=== PATIENT | male | born 1930 | race Caucasian/White ===

== ENCOUNTER → 2017-08-30 | Outpatient (CLI) | payer MEDICARE, OTHER ==
[2015-04-02 02:27] VITALS: BP 181/72
[2017-08-30 12:43] LABS: CREATININE 1.2 mg/dL (0.7-1.3); GFR 57.5; POTASSIUM 4.6 mmol/L (3.5-5.1)
== END | disposition home or self-care (01) ==
LOC: LAB 11:51
PROVIDERS: ATTEND Physician Assistant Medical
DX: E87.5 Hyperkalemia (principal); Z79.899 Other long term (current) drug therapy
CPT/HCPCS: 36415; 80048

== ENCOUNTER 2018-04-25 11:42 | Inpatient (IN) | payer MEDICARE, OTHER ==
[~2018-04-25] VITALS: Ht 175.3 cm; Wt 61.3 kg
[2018-04-25 11:56] VITALS: BP 168/53
[2018-04-25 12:18] LABS: BASO # 0.1 x10^3/uL (0.0-0.2); BASO % 1 % (0-3); EOS % 0 % (0-3); HEMATOCRIT 39.5 % (39.0-53.0); HEMOGLOBIN 12.6 g/dL (13.0-17.5); LYMPH # 1.1 x10^3/uL (1.0-4.8); LYMPH % 7 % (24-48); MEAN CORPUSCULAR HEMOGLOBIN 25 pg (25-35); MEAN CORPUSCULAR HGB CONC 32 g/dL (31-37); MEAN CORPUSCULAR VOLUME 78 fL (79-100); MONO # 0.8 x10^3/uL (0.0-1.1); MONO % 5 % (0-9); NEUT # 13.1 x10^3uL (1.8-7.7); NEUT % 87 % (31-73); PLATELET COUNT 457 x10^3/uL (140-400); RED BLOOD COUNT 5.07 x10^6/uL (4.30-5.70); RED CELL DISTRIBUTION WIDTH 18.5 % (11.5-14.5); WHITE BLOOD COUNT 15.1 x10^3/uL (4.0-11.0)
[2018-04-25 12:29] LABS: ALBUMIN 3.1 g/dL (3.4-5.0); ALBUMIN/GLOBULIN RATIO 0.6 (1.0-1.7); CALCIUM 10.6 mg/dL (8.5-10.1); CREATININE 1.7 mg/dL (0.7-1.3); GFR 38.4; POTASSIUM 4.4 mmol/L (3.5-5.1); TOTAL BILIRUBIN 0.8 mg/dL (0.2-1.0); TOTAL PROTEIN 8.2 g/dL (6.4-8.2)
[2018-04-25] MEDS ORDERED: FISH12002 PO (12:43)
[2018-04-25] MEDS ORDERED: TICA90TA PO (12:43)
[2018-04-25] MEDS ORDERED: LIDO5CRE18 TP (12:43)
[2018-04-25] MEDS ORDERED: FLUT1DIS3 IH (12:43)
[2018-04-25] MEDS ORDERED: BUDE10.2 IH (12:43)
[2018-04-25] MEDS ORDERED: HYDR-963 PO (12:43)
[2018-04-25] MEDS ORDERED: SENN8.6T99 PO (12:43)
[2018-04-25] MEDS ORDERED: PRED20TA PO (12:43)
[2018-04-25] MEDS ORDERED: ALBU2.5V5 NEB (12:43)
[2018-04-25] MEDS ORDERED: ASPI81TA50 PO (12:43)
[2018-04-25] MEDS ORDERED: BISA10SU2 RC (12:43)
[2018-04-25] MEDS ORDERED: PRED-220 PO (12:43)
[2018-04-25] MEDS ORDERED: BUME1TAB PO (12:43)
[2018-04-25] MEDS ORDERED: PRAV20TA2 PO (12:43)
[2018-04-25] MEDS ORDERED: MULT1TAB52 PO (12:43)
[2018-04-25] MEDS ORDERED: TAMS0.4C2 PO (12:43)
[2018-04-25] MEDS ORDERED: SPIR25TA5 PO (12:43)
[2018-04-25] MEDS ORDERED: DILT120C80 PO (12:43)
[2018-04-25] MEDS ORDERED: MONT10TA9 PO (12:43)
[2018-04-25] MEDS ORDERED: GABA-586 PO (12:43)
[2018-04-25] MEDS ORDERED: POLY17PO5 PO (12:43)
[2018-04-25 12:52] LABS: % BANDS 3 % (0-9); % BASOS 0 % (0-3); % EOS 0 % (0-5); % LYMPHS 10 % (24-48); % MONOS 3 % (0-10); % SEGS 84 % (35-66); ANISOCYTOSIS SLIGHT; HYPOCHROMIA SLIGHT; PLT ESTIMATE INCREASED (ADEQUATE); POLYCHROMASIA PRESENT
[2018-04-25] MEDS ORDERED: IOHEXOL 240 MG/ML 50ML VIAL. ONE (13:02)
[2018-04-25 15:01] VITALS: BP 122/55
--- NOTE | 2018-04-25 15:23 | RAD ---
CT of the abdomen and pelvis with oral contrast only 04/25/2018 INDICATION: Abdominal pain. Leukocytosis. COMPARISON STUDY: CT of the abdomen and pelvis March 31, 2015. TECHNIQUE: Multidetector CT imaging of the abdomen and pelvis was obtained following the administration of oral contrast. FINDINGS: There is left lower lobe consolidation with areas of bronchial obstruction. The inferior most area of consolidation is somewhat rounded and masslike appearance. Sinuses represent pneumonia. A mass cannot be completely excluded. Recommend correlation with clinical findings and short-term follow-up CT The liver is unremarkable in appearance. Cholelithiasis is noted. Gallbladder is minimally distended which is nonspecific. The spleen is unremarkable. Small right adrenal gland nodule is unchanged likely an adenoma. Renal cysts are noted bilaterally, similar to comparison study. No evidence of hydronephrosis or obstructive uropathy is identified milligrams kidney. Dense fecal load noted in the rectum. Surrounding rectal wall thickening extending to the distal sigmoid colon is noted. Findings suggest fecal impaction with associated proctitis. Mild distention of the more proximal large bowel is seen. Cecum lies in the right mid abdomen. No pneumoperitoneum is identified. No significant free fluid is seen in the abdomen or pelvis. Encinas catheter is noted within a predominantly decompressed bladder. Pancreas is atrophic in appearance. Degenerative changes of the spine are noted without evidence of acute osseous abnormality. Severe diffuse atherosclerotic vascular disease is noted. Bilateral iliac artery stents are noted. IMPRESSION: 1. Dense stool within the rectum with associated rectal and distal sigmoid colonic wall thickening concerning for a fecal impaction with associated proctitis. Mild distention of the more proximal colon also noted. 2. Left lower lobe consolidation with area of masslike consolidation in the basilar left lower lobe. Areas of bronchial opacification are also seen in left lower lobe. Findings may represent pneumonia, however a left lower lobe mass cannot be excluded. Correlate with clinical findings and consider short-term CT chest follow-up to ensure resolution as clinically indicated. 3. Other chronic changes as described. CT DOSING PQRS STATEMENT: One or more of the following individualized dose reduction techniques were utilized for this examination: 1. Automated exposure control 2. Adjustment of the mA and/or kV according to patient size 3. Use of iterative reconstruction technique Electronically signed by: Dario Fox MD (04/25/2018 3:20 PM) [id number]
[2018-04-25] MEDS ORDERED: BISACODYL 10 MG SUPP.RECT PR PRN (17:30)
--- NOTE | 2018-04-25 17:32 | HP ---
ADMIT DATE: 04/25/2018 HISTORY OF PRESENT ILLNESS: The patient is an 88-year-old male patient, a resident at [facility], who has been complaining of abdominal pain for the last few days. He was evaluated yesterday at the [facility] and was sent back immediately. It seems he was apparently found to have urinary retention and apparently an indwelling Encinas catheter was placed and was sent back to [facility]. However, the patient continued to complain of severe pain and therefore the patient was admitted directly to [facility] as he continued to complain of pain in his suprapubic area marked spasm. We did lab work and CT scan of the abdomen with oral contrast only, and the CT scan of the abdomen showed that the patient has dense stool within the rectum with associated rectal and distal sigmoid colonic wall thickening, concerning for fecal impaction with associated proctitis. He has mild distention of the more proximal colon also noted and has also left lower lobe consolidation with areas of mass-like consolidation, the basilar left lower lobe, areas of bronchial opacification are also seen in the left lower lobe, finding represents pneumonia; however, a left lower lobe mass cannot be excluded. His lab work also showed that he has leukocytosis as well as acute on chronic kidney injury as his BUN and creatinine have dramatically risen from 35 and 1.2 on 04/22/2018 to 55 and 1.7 this morning. He obviously has urine retention that might also have contributed to his impaired kidney function that has resolved by an indwelling Encinas catheter. His calcium was also high at 10.6. PAST MEDICAL HISTORY: Significant for benign prostatic hypertrophy, chronic anemia, chronic obstructive pulmonary disease, chronic constipation, chronic low back pain, peptic ulcer disease, peripheral vascular disease, coronary artery disease, bilateral carotid artery stenosis, chronic diastolic congestive heart failure, gastroesophageal reflux disease, and [id number] hypoxic hypercapnic respiratory failure as well as peripheral neuropathy. PAST SURGICAL HISTORY: Significant for cataract extraction, tonsillectomy, colonoscopy, coronary artery bypass graft surgery x 4, left heart catheterization, cervical and lumbar laminectomy, femoropopliteal bypass graft surgery, vasectomy, carotid endarterectomy and bilateral iliac artery stent deployment. FAMILY HISTORY: Positive for hypertension and coronary artery disease. SOCIAL HISTORY: He is , ex-smoker, quit 20 years ago, used to smoke 2 packs a day for 40 years. He does not drink alcohol or use any recreational drugs. REVIEW OF SYSTEMS: The patient has bilateral cataract extraction, but denied any glaucoma or macular degeneration. Denied any earache, tinnitus or sensorineural deafness. Denied any nosebleeds, stuffy nose or postnasal drip. Denied any sore throat, sore tongue, toothache, hoarseness of voice or difficulty swallowing. Denied any nausea, vomiting but did complain of severe constipation. In fact, he was seen even yesterday at the [facility] Emergency Room, was given milk of magnesia, Fleet enema and suppository without effect. He apparently was found to have urinary retention for which he had an indwelling Encinas catheter placed at the [facility] Room. He denied any chest pain. Did complain of shortness of breath as he is known to have chronic obstructive pulmonary disease as well as COPD as well as congestive heart failure; however, he denied any chills, rigors or fever. Denied any dizziness, lightheadedness, or vertigo. PHYSICAL EXAMINATION: GENERAL: When I examined him on arrival to the hospital, he looked pale, somewhat cachectic, but no jaundice, cyanosis, or thyromegaly. No jugular venous distension. No limb edema. VITAL SIGNS: His heart rate was 82, blood pressure was 122/55, temperature was 98.7, respiratory rate 20, and oxygen saturation was 95% on 4 liters of oxygen. HEAD, EYES, EARS, NOSE, and THROAT: Showed normocephalic, atraumatic. NECK: Supple. HEART: Showed normal first and second heart sounds. No gallop, rub or murmur. CHEST: Clear to auscultation. No crepitation or rhonchi. ABDOMEN: Distended, soft, nontender. The tenderness is mostly in the suprapubic area. There is no guarding or rigidity. No organomegaly. Bowel sounds are normal. NEUROLOGIC: He is awake, alert, responding appropriately. Cranial nerves are intact. EXTREMITIES: She moves extremities without difficulty. He is mostly bedbound, chair bound. LABORATORY DATA: His lab work on arrival showed a serum sodium of 139, potassium 4.4, chloride 97, bicarbonate 38, anion gap of 4, BUN 55, creatinine 1.7, estimated GFR was 58 mL per minute, and his glucose 133. Lactic acid was only 1, calcium was ____. Total bilirubin, AST, and ALT are normal as well as alkaline phosphatase. His lactate dehydrogenase was high at 239. Total protein was 8.2, albumin was 3.1. Lipase was 57. White cell count was 15,000, hemoglobin 12.6, hematocrit 39, MCV 78, and platelet count of 457,000 with normal manual differential. His CT scan of the abdomen and pelvis with oral contrast only showed that the patient has dense stool within the rectum with associated rectal and distal sigmoid colonic wall thickening concerning for fecal impaction with associated proctitis, there is mild distention of the more proximal colon also noted, he has left lower lobe consolidation with areas of mass-like consolidation of the basilar left lower lobe, areas of bronchial opacification are also seen in the left lower lobe, finding represents pneumonia; however, her left lower lobe mass cannot be excluded. PLAN: My plan is to continue with all his medication. I will start him on IV antibiotic for possible healthcare-associated pneumonia and will continue with MiraLax and Colace and perhaps Amitiza or Relistor if necessary. I will repeat all his lab works tomorrow. I will start him on Zyvox and Zosyn. PAUL BERRIOS MD DR: OLIVIA/booker JOB#: [id number] / [id number]
[2018-04-25] MEDS ORDERED: LIDOCAINE 2% TOPICAL JELLY 5GM TUBE. TP PRN (17:45)
[2018-04-25] MEDS: IV NORMAL SALINE 1,000ML 1,000 ML IV SCH (17:55)
[2018-04-25] MEDS: PIPERACILLIN/TAZOBACTAM 2.25 GM in IV NORMAL SALINE 50ML 50 ML IV SCH (17:56)
[2018-04-25 19:41] VITALS: BP 149/69
[2018-04-25 19:48] VITALS: BP 122/54
[2018-04-25] MEDS: BUDESONIDE 0.5 MG/2 ML NEBU NEB SCH (20:46)
[2018-04-25] MEDS ORDERED: NON FORMULARY ITEM (Budesonide/Formoterol Fumarate (Symbicort 160-4.5 Mcg Inhaler) 2 PUFF) IH SCH (21:00)
[2018-04-25] MEDS ORDERED: NON FORMULARY ITEM (Fluticasone/Salmeterol (Advair 250-50 Diskus) 1 PUFF) IH SCH (21:00)
[2018-04-25] MEDS ORDERED: BUMETANIDE 1 MG TABLET PO SCH (21:00)
[2018-04-25] MEDS: MONTELUKAST 10 MG TABLET. PO SCH (21:45)
[2018-04-25] MEDS: TICAGRELOR 90 MG TABLET. PO SCH (21:45)
[2018-04-25] MEDS: PRAVASTATIN 20 MG TABLET. PO SCH (21:45)
[2018-04-25] MEDS: SENNOSIDES 8.6 MG TABLET PO SCH (21:45)
[2018-04-25 23:36] VITALS: BP 114/43
[2018-04-26] MEDS: PIPERACILLIN/TAZOBACTAM 2.25 GM in IV NORMAL SALINE 50ML 50 ML IV SCH ×3 (01:18→17:19)
[2018-04-26 05:26] VITALS: BP 120/66
[2018-04-26 06:16] LABS: HEMATOCRIT 38.4 % (39.0-53.0); HEMOGLOBIN 12.1 g/dL (13.0-17.5); RED BLOOD COUNT 4.91 x10^6/uL (4.30-5.70); RED CELL DISTRIBUTION WIDTH 18.5 % (11.5-14.5); WHITE BLOOD COUNT 18.5 x10^3/uL (4.0-11.0)
[2018-04-26 06:30] LABS: ALBUMIN 2.8 g/dL (3.4-5.0); ALBUMIN/GLOBULIN RATIO 0.6 (1.0-1.7); CALCIUM 9.7 mg/dL (8.5-10.1); CREATININE 1.5 mg/dL (0.7-1.3); GFR 44.4; POTASSIUM 3.7 mmol/L (3.5-5.1); TOTAL PROTEIN 7.7 g/dL (6.4-8.2)
[2018-04-26] MEDS: NALOXEGOL OXALATE 25 MG TABLET. PO SCH (07:00)
[2018-04-26] MEDS: predniSONE 10 MG TABLET PO SCH (08:18)
[2018-04-26] MEDS: OMEGA-3 FATTY ACIDS/FISH OIL 1,000 MG CAPSULE. PO SCH (08:18)
[2018-04-26] MEDS: TAMSULOSIN 0.4 MG CAP.ER.24H. PO SCH (08:18)
[2018-04-26] MEDS: ASPIRIN 81 MG TAB.CHEW PO SCH (08:19)
[2018-04-26] MEDS: SPIRONOLACTONE 25 MG TABLET PO SCH (08:19)
[2018-04-26] MEDS: TICAGRELOR 90 MG TABLET. PO SCH ×2 (08:19→21:07)
[2018-04-26] MEDS: MULTIVITAMIN with MINERAL TABLET. PO SCH (08:19)
[2018-04-26] MEDS: HYDROcodone/APAP 10/325 1 TAB TABLET PO PRN (08:23)
[2018-04-26] MEDS: SENNOSIDES 8.6 MG TABLET PO SCH ×2 (08:31→20:38)
[2018-04-26] MEDS: POLYETHYLENE GLYCOL 3350 17 GM PACKET. PO SCH (08:31)
[2018-04-26] MEDS ORDERED: predniSONE 10 MG TABLET PO SCH (09:00)
[2018-04-26] MEDS ORDERED: predniSONE 20 MG TABLET PO SCH (09:00)
[2018-04-26 10:35] VITALS: BP 153/65
[2018-04-26] MEDS: IV NORMAL SALINE 1,000ML 1,000 ML IV SCH (10:37)
[2018-04-26] MEDS: BUDESONIDE 0.5 MG/2 ML NEBU NEB SCH ×2 (10:43→20:55)
[2018-04-26 15:13] VITALS: BP 135/55
[2018-04-26 15:36] LABS: BACTERIA,URINE 0 /HPF (0-FEW); BILIRUBIN,URINE NEG (NEG); CLARITY,URINE HAZY; COLOR,URINE YELLOW; GLUCOSE,URINE NEG (NEG); NITRITE,URINE NEG (NEG); RBC,URINE >40 /HPF (0-2); UROBILINOGEN,URINE 0.2 mg/dL (0.2 mg/dL)
[2018-04-26 19:00] VITALS: BP 110/49
[2018-04-26] MEDS: ALBUTEROL SULFATE 2.5 MG/3 ML NEBU. NEB PRN (20:55)
[2018-04-26] MEDS: LACTOBACILLUS RHAMNOSUS GG 1 CAPSULE. PO SCH (21:07)
[2018-04-26] MEDS: PRAVASTATIN 20 MG TABLET. PO SCH (21:07)
[2018-04-26] MEDS: MONTELUKAST 10 MG TABLET. PO SCH (21:07)
[2018-04-26 23:55] VITALS: BP 136/59
[2018-04-27] MEDS: PIPERACILLIN/TAZOBACTAM 2.25 GM in IV NORMAL SALINE 50ML 50 ML IV SCH (01:22)
[2018-04-27] MEDS: IV NORMAL SALINE 1,000ML 1,000 ML IV SCH (01:23)
[2018-04-27] MEDS: HYDROcodone/APAP 10/325 1 TAB TABLET PO PRN ×4 (01:23→20:12)
--- NOTE | 2018-04-27 03:43 | PN ---
DATE: 04/26/2018 SUBJECTIVE: The patient is resting, slightly propped up in bed, in no apparent respiratory distress. He has no more complaint of abdominal pain. We did a digital disimpaction yesterday and large amount of stool was recovered and he had large bowel movement yesterday and about 4 this morning. He denied any chest pain. His shortness of breath is baseline. Denied any chills, rigors or fever. He has cough with whitish sputum. PHYSICAL EXAMINATION: GENERAL: When I examined him, he looked pale, somewhat cachectic, but no jaundice, cyanosis, or thyromegaly. No jugular venous distension. No limb edema. VITAL SIGNS: His heart rate was 84, blood pressure was 153/65, temperature was 97.9, respiratory rate 20, and oxygen saturation was 93% on 4 liters of oxygen. HEAD, EYES, EARS, NOSE AND THROAT: Showed normocephalic, atraumatic. NECK: Supple. HEART: Showed normal first and second heart sounds with no gallop, rub or murmur. CHEST: Clear to auscultation. No crepitation or rhonchi. ABDOMEN: Distended, soft, nontender. No guarding or rigidity. No organomegaly. All hernial orifices are intact. Bowel sounds normal. GENITOURINARY: He has an indwelling Encinas catheter. NEUROLOGIC: He is awake, alert, responding appropriately. All cranial nerves are intact. He moves extremities without difficulty. He managed to ambulate with a walker. His intake over the last 24 hours and output were incompletely recorded. LABORATORY DATA: Showed a serum sodium of 138, potassium 3.7, chloride 97, bicarbonate 36, anion gap of 5, BUN 41, creatinine 1.5, estimated GFR was 44 mL per minute, his glucose was 102, calcium was 9.7. Total bilirubin, AST, ALT, alkaline phosphatase were normal. Total protein was 7.7, albumin was 2.8. His white cell count was 18,500, hemoglobin 12, hematocrit 38, MCV 78 and platelet count of 416,000. ASSESSMENT: 1. Abdominal pain due to severe fecal impaction with associated proctitis with mild distention of the more proximal colon, status post digital disimpaction. The patient has numerous bowel movements. His abdomen is soft. He has no more abdominal pain. 2. Benign prostatic hypertrophy with bladder outlet obstruction, status post indwelling Encinas catheter. 3. Acute kidney injury, slowly resolving. His BUN and creatinine are trending downward. 4. Left lower lobe infiltrate for which he is on IV antibiotics for healthcare-associated pneumonia. 5. Other medical problems include chronic obstructive pulmonary disease, chronic low back pain, [id number] hypoxic hypercapnic respiratory failure, peripheral neuropathy and chronic diastolic congestive heart failure. PLAN: My plan is to continue with IV Zosyn and Zyvox. Continue with indwelling Encinas catheter. Continue with gentle dehydration and monitor his lab work, continue with SCD for DVT prophylaxis. PAUL BERRIOS MD DR: OLIVIA/booker JOB#: [id number] / [id number]
[2018-04-27 05:05] VITALS: BP 158/54
[2018-04-27] MEDS: NALOXEGOL OXALATE 25 MG TABLET. PO SCH ×2 (06:00→20:11)
[2018-04-27 06:07] LABS: ALBUMIN 2.3 g/dL (3.4-5.0); ALBUMIN/GLOBULIN RATIO 0.5 (1.0-1.7); CREATININE 1.1 mg/dL (0.7-1.3); GFR 63.5; POTASSIUM 3.6 mmol/L (3.5-5.1); TOTAL BILIRUBIN 0.7 mg/dL (0.2-1.0); TOTAL PROTEIN 6.9 g/dL (6.4-8.2)
[2018-04-27 06:16] LABS: HEMATOCRIT 35.8 % (39.0-53.0); HEMOGLOBIN 11.2 g/dL (13.0-17.5); RED BLOOD COUNT 4.57 x10^6/uL (4.30-5.70); RED CELL DISTRIBUTION WIDTH 18.2 % (11.5-14.5); WHITE BLOOD COUNT 18.4 x10^3/uL (4.0-11.0)
[2018-04-27] MEDS: BUDESONIDE 0.5 MG/2 ML NEBU NEB SCH ×2 (08:00→20:43)
[2018-04-27] MEDS: ASPIRIN 81 MG TAB.CHEW PO SCH (08:37)
[2018-04-27] MEDS: SPIRONOLACTONE 25 MG TABLET PO SCH (08:37)
[2018-04-27] MEDS: OMEGA-3 FATTY ACIDS/FISH OIL 1,000 MG CAPSULE. PO SCH (08:38)
[2018-04-27] MEDS: LACTOBACILLUS RHAMNOSUS GG 1 CAPSULE. PO SCH ×2 (08:38→20:10)
[2018-04-27] MEDS: TAMSULOSIN 0.4 MG CAP.ER.24H. PO SCH (08:38)
[2018-04-27] MEDS: TICAGRELOR 90 MG TABLET. PO SCH ×2 (08:38→20:11)
[2018-04-27] MEDS: MULTIVITAMIN with MINERAL TABLET. PO SCH (08:39)
[2018-04-27] MEDS: predniSONE 10 MG TABLET PO SCH (08:39)
[2018-04-27] MEDS: PIPERACILLIN/TAZOBACTAM 4.5 GM in IV NORMAL SALINE 50ML 50 ML IV SCH ×3 (08:40→20:10)
[2018-04-27] MEDS: SENNOSIDES 8.6 MG TABLET PO SCH ×2 (08:46→20:11)
[2018-04-27] MEDS: POLYETHYLENE GLYCOL 3350 17 GM PACKET. PO SCH (08:46)
[2018-04-27] MEDS: ALBUTEROL SULFATE 2.5 MG/3 ML NEBU. NEB PRN ×2 (10:21→20:43)
[2018-04-27 11:15] VITALS: BP 133/54
[2018-04-27 15:08] VITALS: BP 138/69
[2018-04-27 19:00] VITALS: BP 157/75
[2018-04-27 19:40] VITALS: BP 157/75
[2018-04-27] MEDS: PRAVASTATIN 20 MG TABLET. PO SCH (20:11)
[2018-04-27] MEDS: MONTELUKAST 10 MG TABLET. PO SCH (20:11)
[2018-04-27 22:20] VITALS: BP 161/68
--- NOTE | 2018-04-27 23:15 | PN ---
DATE: 04/27/2018 SUBJECTIVE: The patient is resting, slightly propped up in bed, awake, alert. On questioning him, he stated that he has muscle spasm in his legs, but denied any chest pain or shortness of breath. He has 3 large bowel movements overnight. PHYSICAL EXAMINATION: GENERAL: When I examined him, he looked pale, cachectic, but no jaundice or cyanosis. No lymphadenopathy, no thyromegaly. No jugular venous distension. No limb edema. VITAL SIGNS: His heart rate was 71, blood pressure 158/54, temperature was 98.5, respiratory rate was 18 and oxygen saturation was 94% on 4 liters of oxygen. HEAD, EYES, EARS, NOSE AND THROAT: Showed normocephalic, atraumatic. NECK: Supple. HEART: Showed normal first and second sounds. No gallop, rub or murmur. CHEST: Showed central trachea, equally reduced expansion, reduced air entry, vesicular breath sounds with crepitation mostly on the left side posteriorly. I could not appreciate any rhonchi. ABDOMEN: Distended, soft, nontender. No guarding or rigidity. No organomegaly. All hernial orifices intact. Bowel sounds normal. NEUROLOGIC: He was awake, alert, responding appropriately. Cranial nerves intact. He moves extremities without difficulty. He ambulates with a walker. His intake over the last 24 hours was 1700, output was 1300. LABORATORY DATA: As of this morning showed a white cell count of 18,400, hemoglobin 11.2, hematocrit 36, MCV 78 and platelet count 335,000. His chemistry showed a serum sodium 138, potassium 3.6, chloride 101, bicarbonate 32, anion gap of 5, BUN 27, creatinine 1.1, estimated GFR was 54 mL per minute. His glucose 95, calcium was 9. Total bilirubin, AST, ALT, alkaline phosphatase were normal. Total protein 6.9, albumin 2.3. ASSESSMENT: 1. Abdominal pain due to severe fecal impaction with associated proctitis with mild distention of the more proximal colon, status post tissue disimpaction. The patient has numerous bowel movements. In fact, last night he has 3 large bowel movements. His abdomen is soft. He has no more abdominal pain. 2. Benign prostatic hypertrophy with bladder outlet obstruction, status post indwelling Encinas catheter. 3. Acute kidney injury, slowly improving. His BUN and creatinine are 27 and 1.1. 4. Left lower lobe infiltrate for which he is on IV antibiotics for healthcare-associated pneumonia. 5. Other medical problems include: A. Chronic obstructive pulmonary disease. B. Chronic low back pain. C. Acute on chronic hypoxic hypercapnic respiratory failure. D. Peripheral neuropathy. E. Chronic diastolic congestive heart failure. PLAN: My plan is to discontinue IV fluid. Continue with IV Zosyn and Zyvox. Continue with indwelling Encinas catheter. SCDs for DVT prophylaxis. I consulted PT, OT for evaluation and treatment. PAUL BERRIOS MD DR: OLIVIA/booker JOB#: [id number] / [id number]
[2018-04-28 02:30] VITALS: BP 174/73
[2018-04-28] MEDS: PIPERACILLIN/TAZOBACTAM 4.5 GM in IV NORMAL SALINE 50ML 50 ML IV SCH ×4 (02:59→20:24)
[2018-04-28 05:35] VITALS: BP 171/71
[2018-04-28] MEDS: ASPIRIN 81 MG TAB.CHEW PO SCH (07:10)
[2018-04-28 07:11] LABS: HEMATOCRIT 36.9 % (39.0-53.0); HEMOGLOBIN 11.5 g/dL (13.0-17.5); RED BLOOD COUNT 4.69 x10^6/uL (4.30-5.70); RED CELL DISTRIBUTION WIDTH 18.2 % (11.5-14.5); WHITE BLOOD COUNT 13.8 x10^3/uL (4.0-11.0)
[2018-04-28] MEDS: HYDROcodone/APAP 10/325 1 TAB TABLET PO PRN ×3 (07:11→19:53)
[2018-04-28 07:14] LABS: CALCIUM 8.8 mg/dL (8.5-10.1); GFR 70.8; POTASSIUM 3.4 mmol/L (3.5-5.1)
[2018-04-28] MEDS: BUDESONIDE 0.5 MG/2 ML NEBU NEB SCH ×2 (08:00→20:00)
[2018-04-28] MEDS: SENNOSIDES 8.6 MG TABLET PO SCH ×2 (09:00→20:23)
[2018-04-28] MEDS: POLYETHYLENE GLYCOL 3350 17 GM PACKET. PO SCH (09:00)
[2018-04-28] MEDS: TAMSULOSIN 0.4 MG CAP.ER.24H. PO SCH (09:20)
[2018-04-28] MEDS: OMEGA-3 FATTY ACIDS/FISH OIL 1,000 MG CAPSULE. PO SCH (09:20)
[2018-04-28] MEDS: LACTOBACILLUS RHAMNOSUS GG 1 CAPSULE. PO SCH ×2 (09:20→19:53)
[2018-04-28] MEDS: SPIRONOLACTONE 25 MG TABLET PO SCH (09:20)
[2018-04-28] MEDS: predniSONE 10 MG TABLET PO SCH (09:20)
[2018-04-28] MEDS: TICAGRELOR 90 MG TABLET. PO SCH ×2 (09:20→19:53)
[2018-04-28] MEDS: MULTIVITAMIN with MINERAL TABLET. PO SCH (09:21)
[2018-04-28] MEDS: ALBUTEROL SULFATE 2.5 MG/3 ML NEBU. NEB PRN ×2 (09:39→20:02)
[2018-04-28 11:05] VITALS: BP 139/63
[2018-04-28] MEDS: HYOSCYAMINE 0.125 MG TAB.RAPDIS PO PRN ×2 (11:21→19:55)
[2018-04-28] MEDS: POTASSIUM CHLORIDE 20 MEQ TABLET.ER. PO SCH ×2 (14:18→19:54)
--- NOTE | 2018-04-28 14:38 | RAD ---
CT chest abdomen and pelvis without contrast: History: Pain status post fall Axial helical images of the chest, abdomen and pelvis were obtained without IV contrast. Comparison: April 25, 2018 Findings: There is patchy masslike opacities scattered throughout the left lung the largest is at left lung base and measures 4.7 x 3.9 cm. There is calcification the [place] of the thoracic aorta without aneurysm. There is significant coronary artery calcium patients and there is previous median sternotomy. There is no mediastinal lymphadenopathy or hematoma. There is no hilar lymphadenopathy. Impression: 1. Previous midline sternotomy and significant coronary artery calcifications. 2. Patchy masslike opacities throughout the left lung could be pulmonary contusion however atypical pneumonia or neoplasm is possible. Consider a three-month follow-up CT of the chest without contrast versus a PET/CT. End Impression CT SCAN OF THE ABDOMEN without IV CONTRAST. Findings: Liver: Unremarkable Spleen: Unremarkable Pancreas: Atrophic Adrenal Glands: Unremarkable Kidneys: Multiple cysts Evaluation of stomach and bowel is limited without oral contrast. Evaluation of solid organs is limited without IV contrast. There is no mass or lymphadenopathy. There is no free air. There is no free fluid. There is significant calcification of the abdominal aorta without aneurysm. There is hard plaque causing high-grade stenosis of the infrarenal abdominal aorta. 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 No acute findings. End Impression CT of pelvis without contrast: There is no lymphadenopathy or free fluid. The bladder is partially collapsed around the Encinas and not well evaluated. Apparent mild wall thickening is likely secondary to nondistention. There is some air in the urinary bladder likely due to Encinas placement. There is no pericolonic inflammation. Impression: No acute findings. See CT of the chest without contrast and the CT of the abdomen without contrast. End impression PQRS Compliance Statement: One or more of the following individualized dose reduction techniques were utilized for this examination: 1. Automated exposure control 2. Adjustment of the mA and/or kV according to patient size 3. Use of iterative reconstruction technique Electronically signed by: Bucky Todd III, MD (04/28/2018 2:34 PM) [id number]
[2018-04-28] MEDS: LIDOCAINE (700MG/PATCH) PATCH. TD SCH (14:57)
[2018-04-28 15:02] VITALS: BP 153/70
--- NOTE | 2018-04-28 15:34 | PN ---
DATE: 04/28/2018 SUBJECTIVE: The patient is resting slightly propped up in bed, in no apparent respiratory distress. He continued to complain of some abdominal pain and muscle spasm in his legs. However, he is generally doing much better compared to when he came in. He remained afebrile, generally hemodynamically stable. PHYSICAL EXAMINATION: GENERAL: When I examined him this morning, he looked pale, but no jaundice, cyanosis or thyromegaly. No jugular venous distension. No lower limb edema. VITAL SIGNS: His heart rate was 82, blood pressure 171/71, temperature 98.5, respiratory rate 16 and oxygen saturation was 97% on 4 L of oxygen. HEAD, EYES, EARS, NOSE AND THROAT: Normocephalic, atraumatic. NECK: Supple. HEART: Shows normal first and second heart sounds with no gallop, rub or murmur. CHEST: Shows central trachea, equal bilateral chest expansion and air entry, vesicular breath sounds with crepitation mostly in the left side posteriorly. I could not appreciate any rhonchi. ABDOMEN: Distended, soft, nontender. No guarding or rigidity. No organomegaly. All hernial orifices intact. Bowel sounds normal. NEUROLOGIC: He was awake, alert, responding appropriately. Cranial nerves intact. He moves extremities without difficulty. He managed to ambulate with a walker with standby assist. His intake over the last 24 hours was 2360, output was 1350. LABORATORY DATA: As of this morning showed a white cell count of 13,800, hemoglobin 11.5, hematocrit 36.9, MCV 79 and platelet count 355,000. Serum sodium was 137, potassium 3.4, chloride 103, bicarbonate 28, anion gap of 6, BUN 16, creatinine 1, estimated GFR was 71 mL per minute. Glucose was 86, calcium was 8.8. PLAN: To continue with IV antibiotic in the form of piperacillin, tazobactam as well as his linezolid. His potassium is low, so I will start him on some potassium and increase his spironolactone to 50 mg, start him also on Requip for possible restless legs syndrome. So far, all his cultures are negative. Hopefully, he will remain stable tomorrow. I will arrange for him to be discharged back to [facility] to continue on oral antibiotic. PAUL BERRIOS MD DR: Jayden JOB#: [id number] / [id number]
[2018-04-28 19:41] VITALS: BP 164/54
[2018-04-28] MEDS: MONTELUKAST 10 MG TABLET. PO SCH (19:53)
[2018-04-28] MEDS: PRAVASTATIN 20 MG TABLET. PO SCH (19:53)
[2018-04-28] MEDS ORDERED: PATCH REMOVAL. MC SCH (21:00)
[2018-04-28] MEDS ORDERED: rOPINIRole 0.25 MG TABLET. PO SCH (21:00)
[2018-04-28 23:00] VITALS: BP 164/76
[2018-04-29] MEDS: PIPERACILLIN/TAZOBACTAM 4.5 GM in IV NORMAL SALINE 50ML 50 ML IV SCH ×2 (02:26→08:43)
[2018-04-29] MEDS: HYDROcodone/APAP 10/325 1 TAB TABLET PO PRN ×2 (02:30→11:17)
[2018-04-29] MEDS: NALOXEGOL OXALATE 25 MG TABLET. PO SCH (06:07)
[2018-04-29 06:24] LABS: HEMATOCRIT 36.3 % (39.0-53.0); HEMOGLOBIN 11.4 g/dL (13.0-17.5); RED BLOOD COUNT 4.62 x10^6/uL (4.30-5.70); WHITE BLOOD COUNT 11.9 x10^3/uL (4.0-11.0)
[2018-04-29 06:28] LABS: CALCIUM 8.9 mg/dL (8.5-10.1); CREATININE 0.9 mg/dL (0.7-1.3)
[2018-04-29 06:34] VITALS: BP 154/65
[2018-04-29] MEDS: BUDESONIDE 0.5 MG/2 ML NEBU NEB SCH (08:00)
[2018-04-29] MEDS: POTASSIUM CHLORIDE 20 MEQ TABLET.ER. PO SCH (08:39)
[2018-04-29] MEDS: TICAGRELOR 90 MG TABLET. PO SCH (08:39)
[2018-04-29] MEDS: MULTIVITAMIN with MINERAL TABLET. PO SCH (08:40)
[2018-04-29] MEDS: ASPIRIN 81 MG TAB.CHEW PO SCH (08:40)
[2018-04-29] MEDS: OMEGA-3 FATTY ACIDS/FISH OIL 1,000 MG CAPSULE. PO SCH (08:40)
[2018-04-29] MEDS: LACTOBACILLUS RHAMNOSUS GG 1 CAPSULE. PO SCH (08:40)
[2018-04-29] MEDS: predniSONE 10 MG TABLET PO SCH (08:40)
[2018-04-29] MEDS: TAMSULOSIN 0.4 MG CAP.ER.24H. PO SCH (08:40)
[2018-04-29] MEDS: LIDOCAINE (700MG/PATCH) PATCH. TD SCH (08:44)
[2018-04-29] MEDS: POLYETHYLENE GLYCOL 3350 17 GM PACKET. PO SCH (09:00)
[2018-04-29] MEDS ORDERED: SPIRONOLACTONE 25 MG TABLET PO SCH (09:00)
[2018-04-29] MEDS: SENNOSIDES 8.6 MG TABLET PO SCH (09:00)
--- NOTE | 2018-04-29 10:49 | DS ---
DATE OF DISCHARGE: 04/29/2018 HOSPITAL COURSE: The patient is an 88-year-old male patient, a resident at [facility], who was brought in with complaint of severe abdominal pain and shortness of breath. CT scan showed that he has fecal impaction. He has also had urinary retention requiring indwelling Encinas catheter and initial investigation showed that he has acute kidney injury, most likely due to obstructive uropathy as well as left lower lobe pneumonia. He has an indwelling Encinas catheter. We drained about 1800 mL of urine. His kidney function gradually improved. We started him on IV antibiotics for healthcare-associated pneumonia and started him also on Movantik together with all his bowel regimen and digital disimpaction. He had numerous bowel movements and his general condition improved. He continued to complain of muscle spasms. Otherwise, he remained afebrile, hemodynamically stable. White cell count has normalized from as high as 15,000 to 11,000. So far, all his blood and urine culture is negative and as he remained stable, a decision was made to discharge him back to [facility] to continue with Encinas catheter. Continue to finish antibiotic treatment. Continue with aggressive bowel regimen. PHYSICAL EXAMINATION: GENERAL: When I saw him today, he looked pale, cachectic, but no jaundice, cyanosis or thyromegaly. No jugular venous distention. No lower limb edema. VITAL SIGNS: His heart rate was 73, blood pressure 154/65, temperature was 98.4, respiratory rate was 18 and oxygen saturation was 96% on 4 liters of oxygen. HEAD, EYES, EARS, NOSE AND THROAT: Showed normocephalic, atraumatic. NECK: Supple. HEART: Showed normal first and second sounds. No gallop, rub or murmur. CHEST: Shows central trachea, equally reduced expansion, decreased air entry, vesicular sounds. Few crepitation bilaterally, mostly in the left side posteriorly. I could not appreciate any rhonchi. ABDOMEN: Slightly distended, soft, nontender. No guarding or rigidity. No organomegaly. Hernial orifice intact. Bowel sounds normal. NEUROLOGIC: He is awake, alert, responding appropriately. All cranial nerves intact. He moves extremities without difficulty. He is able to ambulate with a walker with assistance. His intake was 1600, output 1675. LABORATORY DATA: As of this morning, his white cell count was 11,900; hemoglobin 11, hematocrit 36, MCV 78 and platelet count 359,000. His chemistry showed a serum sodium 138, potassium 4, chloride 103, bicarbonate 29, anion gap of 6, BUN 15, creatinine 0.9, estimated GFR was 80 mL per minute. His glucose was 73 and calcium was 8.9. Total bilirubin, AST, ALT, alkaline phosphatase were normal. Total protein 6.9, albumin was 2.3. DISCHARGE MEDICATIONS: He will be discharged home to continue on spironolactone 50 mg once a day; ropinirole 0.5 mg at bedtime; Lidoderm patch 1 patch topically at bedtime on at 8:00 p.m., off at 8:00 a.m.; Anaspaz 0.125 mg sublingually every 4 hours as needed, Flomax 0.8 mg at bedtime, lactobacillus rhamnosus 1 capsule twice a day, polyethylene glycol 17 g daily, multivitamin with calcium once a day, fish oil 1000 mg once a day, diltiazem 240 mg daily, prednisone 10 mg daily, aspirin 81 mg once a day, Movantik 12.5 mg daily, senna 2 tablets twice a day, montelukast 10 mg at bedtime, pravastatin 20 mg at bedtime, Pulmicort 0.25 mg in 2 mL by nebulizer twice a day, hydrocodone/APAP 10/325 one tablet every 6 hours, Dulcolax 10 mg suppository rectally daily p.r.n. for constipation, albuterol sulfate 2.5 mg every 6 hours and guaifenesin 200 mg 4 times a day. He will be also discharged on Flexeril 5 mg at bedtime for muscle spasm and Augmentin 875 mg p.o. b.i.d. with meals for 7 days. FINAL DISCHARGE DIAGNOSES: 1. Abdominal pain with severe fecal impaction with associated proctitis and mild distention of the more proximal colon, status post digital disimpaction. The patient has numerous bowel movements. Repeat CT scan showed no evidence of any constipation. His abdomen clinically soft, has no more abdominal pain. 2. Benign prostatic hypertrophy with bladder outlet obstruction, status post indwelling Encinas catheter. 3. Acute kidney injury. This secondary to obstructive uropathy, improving. His creatinine came down from 1.7-0.9 mg/dL. 4. Left lower lobe infiltrate for which he was treated with IV antibiotics for healthcare-associated pneumonia. He was on meropenem and linezolid. He will be discharged on Augmentin. 5. He has multiple other medical problems including: A. Chronic obstructive pulmonary disease. B. Chronic low back pain. C. Acute on chronic hypoxic hypercapnic respiratory failure. D. Peripheral neuropathy. E. Chronic diastolic congestive heart failure. PAUL BERRIOS MD DR: OLIVIA/booker JOB#: [id number] / [id number]
[2018-04-29] MEDS: ALBUTEROL SULFATE 2.5 MG/3 ML NEBU. NEB PRN (11:01)
[2018-04-29 11:02] VITALS: BP 162/70
[2018-04-29] MEDS: HYOSCYAMINE 0.125 MG TAB.RAPDIS PO PRN (11:17)
== END 2018-04-29 12:35 | DRG 871 ==
LOC: 1 SOUTH 11:50
PROVIDERS: ADMIT Internal Medicine; ATTEND Internal Medicine
DX: A41.9 Sepsis, unspecified organism (principal); J18.9 Pneumonia, unspecified organism; J96.22 Acute and chronic respiratory failure with hypercapnia; J96.21 Acute and chronic respiratory failure with hypoxia; N17.9 Acute kidney failure, unspecified; I50.32 Chronic diastolic (congestive) heart failure; J44.0 Chronic obstructive pulmonary disease with (acute) lower respiratory infection; N13.8 Other obstructive and reflux uropathy; K56.41 Fecal impaction; G62.9 Polyneuropathy, unspecified; G89.29 Other chronic pain; I25.10 Atherosclerotic heart disease of native coronary artery without angina pectoris; I73.9 Peripheral vascular disease, unspecified; K21.9 Gastro-esophageal reflux disease without esophagitis; D72.829 Elevated white blood cell count, unspecified; M54.5 Low back pain; K62.89 Other specified diseases of anus and rectum; N40.1 Benign prostatic hyperplasia with lower urinary tract symptoms; Y95 Nosocomial condition; Z82.49 Family history of ischemic heart disease and other diseases of the circulatory system; Z87.11 Personal history of peptic ulcer disease; Z87.891 Personal history of nicotine dependence; Z95.1 Presence of aortocoronary bypass graft; Z90.89 Acquired absence of other organs; Z98.42 Cataract extraction status, left eye; Z98.41 Cataract extraction status, right eye
CPT/HCPCS: 36415; 71250; 74176; 80048; 80053; 81001; 83605; 83615; 83690; 85007; 85025; 85027; 87086; 87641; 94640; J2020; J2543; J3010; J7512; J7613; J7626; 97110; 97530; J7030

== ENCOUNTER 2018-08-22 11:44 | Emergency (ER) | payer MEDICARE, OTHER ==
[~2018-08-22] VITALS: Ht 175.3 cm; Wt 61.2 kg
[~2018-08-22 11:44] MED LIST: ALBU2.5V5 NEB; ASPI81TA50 PO; BISA10SU2 RC; BUDE10.2 IH; BUME1TAB PO; DILT120C80 PO; FISH12002 PO; FLUT1DIS3 IH; GABA-586 PO; HYDR-963 PO; LIDO5CRE18 TP; MONT10TA9 PO; MULT1TAB52 PO; POLY17PO5 PO; PRAV20TA2 PO; PRED-220 PO; PRED20TA PO; SENN8.6T99 PO; SPIR25TA5 PO; TAMS0.4C2 PO; TICA90TA PO
--- NOTE | 2018-08-22 12:21 | PHYS DOC ---
Past History Past Medical History: Constipation, Hypertension Past Surgical History: Gastric Bypass, Other Alcohol Use: None Drug Use: Opiates Adult General Chief Complaint Chief Complaint: CPR/FULL ARREST HPI HPI 88-year-old male presents via EMS as CODE BLUE. Patient was last found one hour prior to EMS arrival well and without complication. He was given his medications at the nursing facility. When staff went back to check on him one hour later he was found down on the floor. At that time, his body was still warm. EMS was immediately called. EMS performed CPR for about 25 minutes prior to arrival. They gave 6 rounds of epinephrine with asystole each time. They were unable to get a pulse. They were unable to place an ET tube due to fluid in the oropharynx. An alternative airway was in place. The automated compressions device was in place and functioning on arrival. Review of Systems Review of Systems UNRESPONSIVE: Unable to perform Allergies Allergies Allergies Coded Allergies Type Severity Reaction Last Updated Verified atenolol Allergy Intermediate 04/27/18 Yes atorvastatin Allergy Intermediate 04/27/18 Yes benazepril Allergy Intermediate 04/27/18 Yes doxycycline Allergy Intermediate 04/27/18 Yes duloxetine Allergy Intermediate 04/27/18 Yes etodolac Allergy Intermediate 04/27/18 Yes ezetimibe Allergy Intermediate 04/27/18 Yes fentanyl Allergy Intermediate 04/27/18 Yes hydrochlorothiazide Allergy Intermediate 04/27/18 Yes isosorbide Allergy Intermediate 04/27/18 Yes lactulose Allergy Intermediate 04/27/18 Yes levofloxacin Allergy Intermediate 04/27/18 Yes lisinopril Allergy Intermediate 04/27/18 Yes lovastatin Allergy Intermediate 04/27/18 Yes methadone Allergy Intermediate 04/27/18 Yes morphine Allergy Intermediate 04/27/18 Yes naproxen Allergy Intermediate 04/27/18 Yes niacin Allergy Intermediate 04/27/18 Yes nortriptyline Allergy Intermediate 04/27/18 Yes pregabalin Allergy Intermediate 04/27/18 Yes simvastatin Allergy Intermediate 04/27/18 Yes spironolactone Allergy Intermediate 04/27/18 Yes sulindac Allergy Intermediate 04/27/18 Yes I S O L A T I O N *CONTACT* Allergy Unknown 04/29/18 Yes Physical Exam Physical Exam Constitutional: Well developed, well nourished, severe distress, cold skin. [] HENT: Normocephalic, atraumatic, nose normal. [] Eyes: Pupils fixed and dilated bilaterally, no real reflex, conjunctiva normal, no discharge. [] Neck: Supple. [] Cardiovascular: Asystole[] Lungs & Thorax: Bilateral breath sounds course throughout [] Abdomen: Soft, no masses, no pulsatile masses. [] Skin: cool, dry, no erythema, no rash. [] Back: . [] Extremities: No edema. [] Neurologic: Unresponsive no reflexes. [] Psychologic: Unable to perform.[] EKG EKG [] Radiology/Procedures Radiology/Procedures [] Impressions: PORTABLE CHEST 1V History: CPR, code Comparison: March 31, 2015 Findings: Single view of the chest is submitted. There again has been a median sternotomy. Endotracheal tube tip terminates about 4 cm from eugenia. Pericardial cardiac silhouette appears more enlarged than previously. There is diffuse airspace and interstitial opacity of the bilateral hemithoraces, also more focal consolidation left lung base. There is no obvious pneumothorax in this supine patient. There is cervical fusion hardware not fully included. Impression: 1. There is diffuse airspace and interstitial opacity bilaterally which may be due to edema, underlying infiltrate not excluded, also more focal consolidation left lung base. There is endotracheal tube. Electronically signed by: Marcos Obregon MD (08/22/2018 12:23 PM) [id number] DICTATED AND SIGNED BY: MARCOS OBREGON MD DATE: 08/22/18 1212 CC: SHIRA RALPH DO; DONNA BATES ~ Course & Med Decision Making Course & Med Decision Making Pertinent Labs and Imaging studies reviewed. (See chart for details) On arrival, the patient was not found to have a pulse. CPR was continued. His pupils were fixed and dilated with no corneal reflex on arrival. Paramedics gave 6 rounds of epinephrine and performed CPR for about 20 minutes prior to arrival. The patient had unknown down time. I removed the laryngeal airway and was able to intubate the patient with a 7.5 ET tube and a single attempt. There was considerable fluid and we suctioned the tube multiple times. We did a total of 4 rounds of epinephrine with no change in the patient's condition. At every pulse check there was no pulse and the rhythm was asystole. He was given one amp of bicarbonate with the third epinephrine. End-tidal CO2 during compressions was 14-17, indicating quality compressions. Patient's skin was cold. After 20-25 minutes, I called the code and declared the patient at 1206. Greater than 35 minutes of critical care time was performed on this patient exclusive of other billable procedures. [] Dragon Disclaimer Dragon Disclaimer This electronic medical record was generated, in whole or in part, using a voice recognition dictation system. Intubation Procedure Intub Indication: [CODE BLUE, unresponsive] Consent: [Implied] Medications Used: [None] Procedure: The patient was placed in the supine position. Cricoid pressure was not needed. The patient's airway was suctioned prior to intubation attempt. Intubation was performed with them #3 Mac blade, direct vocal cord visualization , with a 7.5 endotracheal tube. Intubation was successful in a single attempt. ET tube was secured with a common device by respiratory therapy. Initial confirmation of placement included positive color change on CO2 detector and bilateral breath sounds to auscultation. A chest x-ray to verify correct placement of the tube showed the tube to be 4 cm above the eugenia, but in place. The patient tolerated the procedure well due to being unresponsive. Complications: Copious fluid in the airway. Departure Departure: Referrals: DONNA BATES (PCP) SHIRA RALPH DO Aug 22, 2018 12:21
--- NOTE | 2018-08-22 12:26 | RAD ---
PORTABLE CHEST 1V History: CPR, code Comparison: March 31, 2015 Findings: Single view of the chest is submitted. There again has been a median sternotomy. Endotracheal tube tip terminates about 4 cm from eugenia. Pericardial cardiac silhouette appears more enlarged than previously. There is diffuse airspace and interstitial opacity of the bilateral hemithoraces, also more focal consolidation left lung base. There is no obvious pneumothorax in this supine patient. There is cervical fusion hardware not fully included. Impression: 1. There is diffuse airspace and interstitial opacity bilaterally which may be due to edema, underlying infiltrate not excluded, also more focal consolidation left lung base. There is endotracheal tube. Electronically signed by: Obed Yanez MD (08/22/2018 12:23 PM) [id number]
[2018-08-22] MEDS ORDERED: EPINEPHrine SYRINGE 1 MG/10 ML SYRINGE ONE (12:30)
[2018-08-22] MEDS ORDERED: SODIUM BICARB ADULT 8.4% 50 MEQ/50 ML DISP.SYRIN. ONE (12:30)
== END 2018-08-22 13:31 | disposition expired ==
LOC: ER 11:44
DX: I46.9 Cardiac arrest, cause unspecified (principal); I10 Essential (primary) hypertension; Z98.84 Bariatric surgery status; Z88.8 Allergy status to other drugs, medicaments and biological substances; Z88.1 Allergy status to other antibiotic agents; Z88.5 Allergy status to narcotic agent; Z91.041 Radiographic dye allergy status
CPT/HCPCS: 31500; 36415; 71045; 92950; 99285; J0171